=== PATIENT | female | born 2000 | race Caucasian/White ===

== ENCOUNTER 2021-09-25 19:48 | Emergency (ER) | payer BC ==
[~2021-09-25] VITALS: Ht 165.1 cm; Wt 78.2 kg
[2021-09-25 19:56] VITALS: BP 119/79; TEMP 98.2
[2021-09-25] MEDS ORDERED: ADDERALL30 MG PO (19:56)
[2021-09-25 20:16] LABS: BASO % 0.5 % (0.0-2.0); EOS # 0.1 K/mm3 (0.0-0.7); EOS % 0.9 % (0.0-4.0); GRAN # 3.5 K/mm3 (1.4-6.5); GRAN % 55.5 % (42.2-75.2); HEMATOCRIT 38.1 % (37.0-47.0); HEMOGLOBIN 12.1 g/dl (12.5-16.0); LYMPH # 1.9 K/mm3 (1.2-3.4); LYMPH % 29.8 % (20.0-51.0); MEAN CELL VOLUME 80 fl (80.0-100.0); MEAN CORPUSCULAR HEMOGLOBIN 26 pg (27-31); MEAN CORPUSCULAR HGB CONC 32 g/dl (33.0-37.0); MEAN PLATELET VOLUME 9.1 fl (7.4-10.4); MONO # 0.8 K/mm3 (0.1-0.6); PLATELET COUNT 314 K/mm3 (130-400); RED BLOOD COUNT 4.75 M/mm3 (4.10-5.30); REDCELL DISTRIBUTION WIDTH-CV 13.5 % (11.5-14.5)
[2021-09-25 20:31] LABS: COLLECTION METHOD CLEAN CATCH
[2021-09-25 20:36] LABS: MUCOUS Present (NOT PRESENT); PH 6 (5-8); SQUAMOUS EPITHELIAL 0-2 /hpf (0-10); URINE APPEARANCE Clear (CLEAR/HAZY); URINE BACTERIA None Seen /hpf (NONE SEEN); URINE BILIRUBIN Negative (NEGATIVE); URINE BLOOD Negative (NEGATIVE); URINE COLOR Straw (YELLOW); URINE GLUCOSE Negative (NEGATIVE); URINE KETONE Negative (NEGATIVE); URINE LEUKOCYTE ESTERASE Trace (NEGATIVE); URINE NITRATE Negative (NEGATIVE); URINE PROTEIN(semi-quant) Negative (NEGATIVE); URINE RBC 0-2 /hpf (0-2); URINE UROBILINOGEN Negative (NEGATIVE)
[2021-09-25 20:38] LABS: ALBUMIN 4.3 gm/dL (3.5-5.0); BILIRUBIN,TOTAL 0.3 mg/dL (0.2-1.2); C-REACTIVE PROTEIN 0.15 mg/dL (0.00-0.50); CALCIUM 9.1 mg/dL (8.4-10.2); CREATININE, serum 0.75 mg/dL (0.57-1.11); POTASSIUM 3.9 mmol/L (3.5-4.5); TOTAL PROTEIN 7.9 gm/dL (6.2-8.1)
[2021-09-25 22:18] VITALS: PULSE 86
== END 2021-09-25 22:21 | disposition home or self-care (01) ==
LOC: COL.ER 19:48
PROVIDERS: Nurse Practitioner
DX: R10.31 Right lower quadrant pain (principal); R11.0 Nausea; Z32.02 Encounter for pregnancy test, result negative
CPT/HCPCS: J1885; J2405; J7030; Q9967

== ENCOUNTER 2021-12-11 17:41 | Emergency (ER) | payer SELFPAY ==
[~2021-12-11] VITALS: Ht 165.1 cm; Wt 78.6 kg
[~2021-12-11 17:41] MED LIST: ADDERALL30 MG PO
[2021-12-11 18:04] VITALS: TEMP 98.1
[2021-12-11 18:45] VITALS: BP 118/73; PULSE 75
== END 2021-12-11 18:45 | disposition home or self-care (01) ==
LOC: COL.ER 17:41
DX: T23.191A Burn of first degree of multiple sites of right wrist and hand, initial encounter (principal); X12.XXXA Contact with other hot fluids, initial encounter; Y92.59 Other trade areas as the place of occurrence of the external cause; Y99.0 Civilian activity done for income or pay